=== PATIENT | female | born 1945 | race Caucasian/White ===

== ENCOUNTER 2020-04-06 15:56 | Emergency (ER) | payer MEDICARE ==
[~2020-04-06] VITALS: Ht 160 cm; Wt 87.0 kg
[2020-04-06 16:27] VITALS: BP 177/89
[2020-04-06 17:30] LABS: HEMATOCRIT 43.2 % (37.0-47.0); HEMOGLOBIN 13.6 g/dl (12.0-16.0); IMMATURE GRANULOCYTES 0.9 % (0.0-5.0); MEAN CELL VOLUME 93.7 fL CALC (80.0-100.0); MEAN CORPUSCULAR HGB 29.5 pG CALC (26.0-32.0); MEAN CORPUSCULAR HGB CONC 31.5 g/dL CAL (32.0-36.0); NEUT# 6.76 thou/uL (2.00-7.15); RED BLOOD COUNT 4.61 mill/uL (4.20-5.60); RED CELL DISTRI WIDTH 13.8 % (11.5-15.5)
[2020-04-06 17:50] LABS: PROTHROMBIN TIME 9.9 SECONDS (9.0-12.5)
[2020-04-06 17:51] LABS: ANION GAP 11 (6-22 (CALC)); BUN 13 mg/dL (8-23); BUN/CREATININE RATIO 24 (12-20 (CALC)); CARBON DIOXIDE 33 mmol/l (22-30); CHLORIDE 93 mmol/l (95-108); CREATININE 0.5 mg/dL (0.5-1.0); GFR > 60 ML/MIN (>=60 (CALC)); GFR FOR AFR.AMER. > 60 ML/MIN (>=60 (CALC)); POTASSIUM 4.2 mmol/l (3.5-5.1); SODIUM 133 mmol/l (137-146)
[2020-04-06] MEDS ORDERED: METFORMIN HCL1000 MG PO (19:23)
[2020-04-06] MEDS ORDERED: CITALOPRAM10 M1 PO (19:25)
[2020-04-06] MEDS ORDERED: WELLBUTRIN100 M2 PO (19:25)
[2020-04-06] MEDS ORDERED: LISINOPRIL20 MG PO (19:26)
[2020-04-06] MEDS ORDERED: AMARYL1 M1 PO (19:27)
[2020-04-06] MEDS ORDERED: VERAPAMIL120 M1 PO (19:27)
[2020-04-06] MEDS ORDERED: LANTUS SOL100 UNIT/M SC (19:28)
== END 2020-04-06 20:22 | disposition short-term general hospital (02) ==
LOC: ED 15:56
PROVIDERS: Student in an Organized Health Care Education/Training Program
PROC: 0T9B70Z Drainage of Bladder with Drainage Device, Via Natural or Artificial Opening (ICD-10-PCS; principal; 2020-04-06)
DX: S72.142A Displaced intertrochanteric fracture of left femur, initial encounter for closed fracture (principal); I10 Essential (primary) hypertension; W01.198A Fall on same level from slipping, tripping and stumbling with subsequent striking against other object, initial encounter; Y93.89 Activity, other specified; Y92.009 Unspecified place in unspecified non-institutional (private) residence as the place of occurrence of the external cause